=== PATIENT | male | born 1965 | race American Indian/Alaskan Native ===

== ENCOUNTER 2019-04-07 05:39 | Emergency (ER) | payer SELFPAY ==
[2019-04-07 05:48] VITALS: BP 134/84; PULSE 72; TEMP 97.6; O2SAT 96
--- NOTE | 2019-04-07 06:07 | C.PDOC ---
History Of Present Illness patient c/o atraumtic pain to his left great toe x 3 days. he states he had a similar pain once previously that resolved without medication. he states it is painful to walk of even have a shoe on. he denies trauma, fever or chills. Time Seen by Provider: 04/07/19 05:50 Chief Complaint (Nursing): Lower Extremity Problem/Injury History Per: Patient History/Exam Limitations: no limitations Onset/Duration Of Symptoms: Days, Persistent Current Symptoms Are (Timing): Still Present Severity: Severe Past Medical History Reviewed: Historical Data, Nursing Documentation, Vital Signs Vital Signs: Last Vital Signs Temp 97.6 F 04/07/19 05:45 Pulse 72 04/07/19 05:45 Resp 16 04/07/19 05:45 BP 134/84 04/07/19 05:45 Pulse Ox 96 04/07/19 05:45 Primary Care Provider: Non [facility] Provider, - Medical History PMH: No Chronic Diseases Family History: States: Hypertension - Social History Hx Alcohol Use: No Hx Substance Use: No Review Of Systems Except As Marked, All Systems Reviewed And Found Negative. Constitutional: Negative for: Fever, Chills Musculoskeletal: Positive for: Foot Pain Physical Exam - Physical Exam Appears: Well, Non-toxic, In Acute Distress Skin: Normal Color, Warm Head: Atraumatic, Normacephalic Extremity: Tenderness (ttp left great toe at mtp joint, no swelling or erythema) Extremity: Bilateral: Atraumatic Pulses: Right Dorsalis Pedis: Normal Neurological/Psych: Oriented x3, Normal Speech, Normal Cognition ED Course And Treatment O2 Sat by Pulse Oximetry: 96 Disposition Counseled Patient/Family Regarding: Studies Performed, Diagnosis, Need For Followup, Rx Given - Disposition Referrals: Podiatry Clinic [Outside] Disposition: HOME/ ROUTINE Disposition Time: 06:29 Condition: STABLE Prescriptions: Meloxicam 15 mg PO DAILY PRN #14 tablet PRN Reason: Pain, Moderate (4-7) Instructions: Osteoarthritis (DC) Forms: [facility] (Thai), General Discharge Instructions, Work Excuse - Clinical Impression Clinical Impression: 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
[2019-04-07 06:50] VITALS: RESP 18
--- NOTE | 2019-04-07 09:57 | RAD ---
PROCEDURE: Radiographs of the right great toe. TECHNIQUE:: AP radiograph of the right foot, with oblique and lateral view of the right great toe. COMPARISON: None. TECHNIQUE: 3 views obtained. FINDINGS: BONES: Normal. No fracture. JOINTS: Osteoarthritis MTP 1. Remaining joint spaces and articular surfaces appear preserved. No articular erosions. SOFT TISSUES: Normal. OTHER FINDINGS: None. IMPRESSION: Osteoarthritis at MTP 1
== END 2019-04-07 06:49 | disposition home or self-care (01) ==
LOC: C.ER 05:39
DX: M19.071 Primary osteoarthritis, right ankle and foot (principal)
CPT/HCPCS: 73660; 96372; 99284; J1885